=== PATIENT | female | born 1995 | race Caucasian/White ===

== ENCOUNTER 2019-04-23 13:34 | Emergency (ER) | payer MEDICAID ==
[~2019-04-23] VITALS: Ht 157.5 cm; Wt 63.6 kg
[2019-04-23 13:45] VITALS: BP 114/70; TEMP 98.4
[2019-04-23] MEDS ORDERED: TYLENOL 500MG500 MG PO (14:18)
[2019-04-23] MEDS ORDERED: MAXALT5 MG PO (14:19)
[2019-04-23 15:32] VITALS: PULSE 80
== END 2019-04-23 15:36 | disposition home or self-care (01) ==
LOC: COL.ER 13:34
DX: S50.11XA Contusion of right forearm, initial encounter (principal); S60.221A Contusion of right hand, initial encounter; X58.XXXA Exposure to other specified factors, initial encounter

== ENCOUNTER → 2019-08-02 | Emergency (ER) | payer MEDICAID ==
[~2019-08-02] VITALS: Ht 157.5 cm; Wt 63.6 kg
[~2019-08-02] MED LIST: MAXALT5 MG PO; TYLENOL 500MG500 MG PO
[2019-08-02 12:06] VITALS: BP 103/64; PULSE 73; TEMP 98.6
== END ==
LOC: COL.ER 11:52
DX: O26.899 Other specified pregnancy related conditions, unspecified trimester (principal); R10.9 Unspecified abdominal pain; Z3A.00 Weeks of gestation of pregnancy not specified